=== PATIENT | male | born 1965 | race Caucasian/White ===

== ENCOUNTER 2020-03-24 11:17 | Day surgery (SDC) | payer OTHER, MEDICARE ==
[2020-03-24] MEDS ORDERED: Depo-Medrol 40 MG/ML IM ONE (11:18)
[2020-03-24] MEDS ORDERED: Xylocaine-Mpf 2% 5 Ml Vial IJ ONE (11:18)
[2020-03-24] MEDS ORDERED: DIPRIVAN 200 MG/20 ML IV ONE (12:24)
[2020-03-24] MEDS ORDERED: Ketamine HCl 50 MG/ML ONE (12:24)
[2020-03-24] MEDS ORDERED: Lactated Ringers 1,000 ML IV ONE (15:18)
--- NOTE | 2020-03-24 16:31 | XRAY ---
11 seconds fluoroscopy time in surgery for bilateral L3-S1 MBB.
--- NOTE | 2020-03-27 19:40 | XRAY ---
Indication: Bilateral L3-S1 MBB. Intraoperative fluoroscopy was provided for 11 seconds. A single PA digital spot image submitted for interpretation demonstrates posterior needle tips projected over the expected course of the left and right L3-S1 nerve roots. Correlate with intraoperative findings/report.
== END 2020-03-24 12:48 | disposition home or self-care (01) ==
LOC: SDC-PAIN 11:17
PROVIDERS: ATTEND Psychiatry & Neurology Pain Medicine
DX: M47.816 Spondylosis without myelopathy or radiculopathy, lumbar region (principal); I10 Essential (primary) hypertension; K44.9 Diaphragmatic hernia without obstruction or gangrene; Z85.118 Personal history of other malignant neoplasm of bronchus and lung
CPT/HCPCS: 64493; 64494; 64495; 72020; 77002; J1030; J2704

== ENCOUNTER 2020-04-21 09:29 | Day surgery (SDC) | payer OTHER, MEDICARE ==
[2020-04-21] MEDS ORDERED: Marcaine 0.5% SDV 10 ML IM ONE (09:30)
[2020-04-21] MEDS ORDERED: Depo-Medrol 40 MG/ML IM ONE (09:30)
--- NOTE | 2020-04-21 12:30 | XRAY ---
Indication: Bilateral SI joint injection. Intraoperative fluoroscopy was provided for 21 seconds. 4 digital spot images submitted for interpretation demonstrates posterior needle tip projecting over the inferior left and right SI joints. Correlate with intraoperative findings/report.
--- NOTE | 2020-04-21 14:26 | XRAY ---
21 seconds of fluoroscopy was used in surgery for a bilateral SI joint injection.
[2020-04-21] MEDS ORDERED: Lactated Ringers 1,000 ML IV ONE (14:53)
== END 2020-04-21 11:45 | disposition home or self-care (01) ==
LOC: SDC-PAIN 09:29
PROVIDERS: ATTEND Psychiatry & Neurology Pain Medicine
DX: M46.1 Sacroiliitis, not elsewhere classified (principal); I10 Essential (primary) hypertension; J44.9 Chronic obstructive pulmonary disease, unspecified; K44.9 Diaphragmatic hernia without obstruction or gangrene; Z85.118 Personal history of other malignant neoplasm of bronchus and lung
CPT/HCPCS: 64451; 72202; 77002; J1030